=== PATIENT | female | born 1945 | race Hispanic/Latino ===

== ENCOUNTER 2017-08-15 08:59 | Emergency (ER) | payer MEDICARE ==
[~2017-08-15 08:59] MED LIST: ATOR20TA65 PO; CANA300T PO; CHOL200074 PO; INSU100V12 SQ; METF10004 PO; OLME40TA8 PO; PIOG15TA66 PO; PREG75 PO; VITA150T PO
[2017-08-15] MEDS ORDERED: HYDROCODONE/ACETAMINOPHEN 10/325 MG TAB ONE (09:15)
[2017-08-15] MEDS ORDERED: MORPHINE SULFATE 4 MG/1ML SYG ONE (09:49)
[2017-08-15] MEDS ORDERED: ONDANSETRON HCL 4 MG/2 ML VIAL ONE ×2 (09:50→10:39)
[2017-08-15] MEDS ORDERED: SODIUM CHLORIDE 0.9% 1000ML 1,000 ML IV ONE (10:39)
[2017-08-15] MEDS ORDERED: FENTANYL CITRATE PF 50 MCG/1 ML 2ML VIAL ONE (10:41)
== END 2017-08-15 12:24 | disposition home or self-care (01) ==
LOC: EDH 08:59
DX: S43.084A Other dislocation of right shoulder joint, initial encounter (principal); E11.9 Type 2 diabetes mellitus without complications; I10 Essential (primary) hypertension; Z95.1 Presence of aortocoronary bypass graft; W18.39XA Other fall on same level, initial encounter; Y93.01 Activity, walking, marching and hiking; Y92.89 Other specified places as the place of occurrence of the external cause; Y99.8 Other external cause status
CPT/HCPCS: 23650; 73030 ×3; 82948; 96374; 96375; 96376; 99285; J2270; J2405 ×2; J3010; J7030

== ENCOUNTER → 2021-01-02 | Outpatient (CLI) | payer MEDICARE ==
[~2021-01-02] MED LIST changes: +METF-446 PO; -METF10004 PO
== END | disposition home or self-care (01) ==
LOC: RAH 11:29
PROVIDERS: ATTEND Family Medicine
DX: M79.604 Pain in right leg (principal)
CPT/HCPCS: 93971

== ENCOUNTER → 2025-04-11 | Outpatient (CLI) | payer OTHER, MEDICARE ==
[~2025-04-11] MED LIST changes: +OLME40TA70 PO; -OLME40TA8 PO
--- NOTE | 2025-04-11 14:23 | HMCIMG ---
EXAM: CR Cervical spine, 4 View. CLINICAL HISTORY: Cervicalgia COMPARISON: None provided. FINDINGS: BONES: No acute fracture or aggressive appearing osseous lesion. DISCS/DEGENERATIVE CHANGES: Mild multilevel degenerative changes. No definite foraminal or canal stenosis identified. SOFT TISSUES: No prevertebral soft tissue swelling. The visualized lung apices are clear. IMPRESSION: No acute cervical spine abnormality. Mild multilevel degenerative changes. No definite foraminal or canal stenosis identified. /[place]
--- NOTE | 2025-04-11 14:23 | HMCIMG ---
EXAM: CR left elbow, 2 View. CLINICAL HISTORY: Pain in left elbow COMPARISON: None provided. FINDINGS: BONES: No acute fracture or aggressive appearing osseous lesion. JOINTS: The joint spaces appear within normal limits. No dislocation. Small elbow joint effusion. SOFT TISSUES: Edema within the dorsal soft tissues of the proximal forearm. Incidental soft tissue calcifications. Atherosclerotic vascular calcifications are noted. IMPRESSION: 1. Small elbow joint effusion with dorsal soft tissue edema of the proximal forearm. 2. No acute osseous injury. /[place]
--- NOTE | 2025-04-11 14:24 | HMCIMG ---
EXAM: CR left Shoulder, 2 View. CLINICAL HISTORY: Pain in left shoulder COMPARISON: None provided. FINDINGS: BONES: No acute fracture or aggressive appearing osseous lesion. JOINTS: No dislocation. Mild acromioclavicular and glenohumeral joint osteoarthritis. Small subacromial spur likely resulting in rotator cuff tendon impingement. Superior migration of the humeral head with narrowing of the subacromial interval likely reflects rotator cuff tendon pathology. SOFT TISSUES: The soft tissues are unremarkable. IMPRESSION: 1. No acute osseous injury. 2. Subacromial spur with likely rotator cuff impingement and superior humeral head migration suggesting rotator cuff pathology. /[place]
--- NOTE | 2025-04-11 14:25 | HMCIMG ---
EXAM: CR left Hand, 3 View. CLINICAL HISTORY: Pain in hand and fingers COMPARISON: None provided. 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 Mildly displaced, comminuted intra-articular fracture of the distal radius. Displaced fracture of the ulnar styloid process. Soft tissue edema at the wrist. IMPRESSION: 1. Mildly displaced, comminuted intra-articular distal radius fracture with displaced ulnar styloid process fracture. 2. Soft tissue edema at the wrist. /[place]
--- NOTE | 2025-04-11 14:30 | HMCIMG ---
EXAM: CR left Wrist, 2 View. CLINICAL HISTORY: Pain in hand and fingers COMPARISON: None provided. 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 Mildly displaced, comminuted intra-articular fracture of the distal radius. Displaced fracture of the ulnar styloid process. Soft tissue edema at the wrist. IMPRESSION: 1. Mildly displaced, comminuted intra-articular distal radius fracture with displaced ulnar styloid process fracture. 2. Soft tissue edema at the wrist. /[place]
== END | disposition home or self-care (01) ==
LOC: RAH 12:09
PROVIDERS: ATTEND Family Medicine
DX: S52.612A Displaced fracture of left ulna styloid process, initial encounter for closed fracture (principal); S52.572A Other intraarticular fracture of lower end of left radius, initial encounter for closed fracture; R60.1 Generalized edema; M19.032 Primary osteoarthritis, left wrist; M19.012 Primary osteoarthritis, left shoulder; M25.422 Effusion, left elbow; I25.10 Atherosclerotic heart disease of native coronary artery without angina pectoris; M47.812 Spondylosis without myelopathy or radiculopathy, cervical region; M54.2 Cervicalgia; M25.532 Pain in left wrist; M79.642 Pain in left hand; M25.512 Pain in left shoulder; M25.522 Pain in left elbow; X58.XXXA Exposure to other specified factors, initial encounter; Y93.89 Activity, other specified; Y92.89 Other specified places as the place of occurrence of the external cause; Y99.8 Other external cause status
CPT/HCPCS: 72050; 73030; 73070; 73110; 73130